=== PATIENT | female | born 2000 | race Caucasian/White ===

== ENCOUNTER 2019-09-18 17:01 | Emergency (ER) | payer OTHER ==
[~2019-09-18] VITALS: Ht 167.6 cm; Wt 83.9 kg
[2019-09-18 17:10] LABS: Calcium, Ionized (POC) 1.21 mmol/L (1.10-1.46); Chloride (POC) 104 mmol/L (98-108); Creatinine (POC) 0.8 mg/dL (0.6-1.0); Glucose (ISTAT POC) 121 mg/dL (70-99); Potassium (POC) 3.5 mmol/L (3.5-5.5); Sodium (POC) 138 mmol/L (135-148); Total CO2 (POC) 21 mmol/L (21-32)
[2019-09-18] MEDS ORDERED: CARB200ER PO (17:11)
[2019-09-18 18:29] LABS: Carbamazepine <0.5 ug/mL (4.0-12.0)
== END 2019-09-18 19:34 | disposition home or self-care (01) ==
LOC: ER 17:01
PROVIDERS: Emergency Medicine
DX: G40.909 Epilepsy, unspecified, not intractable, without status epilepticus (principal); F17.200 Nicotine dependence, unspecified, uncomplicated; Z79.899 Other long term (current) drug therapy; Z91.14 Patient's other noncompliance with medication regimen
CPT/HCPCS: 80047; 80156; 85014; 96374; 99284-25; J1885

== ENCOUNTER 2020-08-21 23:00 | Emergency (ER) | payer OTHER ==
[~2020-08-21] VITALS: Ht 167.6 cm; Wt 98.9 kg
[~2020-08-21 23:00] MED LIST: CARB200ER PO
[2020-08-21] MEDS ORDERED: LEVE500 PO (23:42)
== END 2020-08-22 00:23 | disposition home or self-care (01) ==
LOC: ER 23:00
DX: G40.909 Epilepsy, unspecified, not intractable, without status epilepticus (principal); R51 Headache; Z79.899 Other long term (current) drug therapy
CPT/HCPCS: 96374; 99283-25; J1885

== ENCOUNTER → 2021-08-18 | Outpatient (CLI) | payer OTHER ==
[~2021-08-18] MED LIST changes: +LEVE500 PO
[2021-08-20 11:10] LABS: CHLAMYDIA TRACHOMATIS, NAA Negative (Negative)
== END | disposition home or self-care (01) ==
LOC: LAB 12:06 → LAB SHORT 12:06
PROVIDERS: Family Medicine
DX: Z01.419 Encounter for gynecological examination (general) (routine) without abnormal findings (principal); Z11.3 Encounter for screening for infections with a predominantly sexual mode of transmission
CPT/HCPCS: 87491; 87591; G0123

== ENCOUNTER 2023-03-08 01:00 | Day surgery (SDC) | payer OTHER ==
[~2023-03-08 01:00] MED LIST changes: +Ativan1 MG PO
[2023-03-08] MEDS ORDERED: SPRINTEC PO (10:09)
[2023-03-08] MEDS ORDERED: SUMA25 PO (10:10)
[2023-03-08] MEDS ORDERED: MULTIPLE VITAM1 EACH PO (10:10)
--- NOTE | 2023-03-08 10:27 | NUR ---
LABS DRAWN FROM [facility] AT 0911, 0945 AND 1015.
== END 2023-03-08 10:17 | disposition home or self-care (01) ==
LOC: ATC 01:00
DX: E22.1 Hyperprolactinemia (principal); E28.2 Polycystic ovarian syndrome
CPT/HCPCS: 80400; 82533; J0834

== ENCOUNTER → 2024-01-11 | Outpatient (CLI) | payer OTHER ==
[~2024-01-11] MED LIST changes: +MULTIPLE VITAM1 EACH PO; +SPRINTEC PO; +SUMA25 PO
[2024-01-13 11:06] LABS: APTIMA MEDIA TYPE Unisex Swab; C. TRACHOMATIS BY TMA Negative (Negative); N. GONORRHOEAE BY TMA Negative (Negative); SPECIMEN SOURCE Cervical; T. VAGINALIS BY TMA Negative (Negative)
== END | disposition home or self-care (01) ==
LOC: LAB 11:18 → LAB SHORT 11:18
PROVIDERS: Obstetrics & Gynecology
DX: Z01.419 Encounter for gynecological examination (general) (routine) without abnormal findings (principal); Z11.3 Encounter for screening for infections with a predominantly sexual mode of transmission
CPT/HCPCS: 87491; 87591; 87661; G0123

== ENCOUNTER 2024-05-24 09:00 | Emergency (ER) | payer OTHER ==
[~2024-05-24] VITALS: Ht 167.6 cm; Wt 97.1 kg
[2024-05-24 09:07] VITALS: BP 139/85
[2024-05-24] MEDS ORDERED: Prochlorperazine Edisylate 10 mg Vial IV ONE (10:35)
[2024-05-24] MEDS ORDERED: Ketorolac Tromethamine 30mg Vial IV ONE (10:40)
[2024-05-24] MEDS ORDERED: DiphenhydrAMINE HCl 50 MG/ML 1ML Vial IV ONE (10:40)
== END 2024-05-24 11:31 | disposition home or self-care (01) ==
LOC: ER 09:00
DX: G43.909 Migraine, unspecified, not intractable, without status migrainosus (principal); Z79.899 Other long term (current) drug therapy
CPT/HCPCS: 96374; 96375; 99283-25; J0780; J1200; J1885

== ENCOUNTER 2025-03-19 10:56 | Emergency (ER) | payer OTHER ==
[~2025-03-19] VITALS: Ht 167.6 cm; Wt 111.1 kg
[2025-03-19 12:10] LABS: BASOPHILS ABSOLUTE AUTO 0.06 K/mm3 (0.00-0.23); BASOPHILS PERCENT AUTO 1 % (0-2); EOSINOPHILS ABSOLUTE AUTO 0.17 K/mm3 (0.00-0.68); EOSINOPHILS PERCENT AUTO 2 % (0-6); Hematocrit 40.5 % (33.0-51.0); Hemoglobin 13.4 g/dL (11.5-16.0); IMMATURE GRAN ABSOLUTE AUTO 0.03 K/mm3 (0.00-0.10); IMMATURE GRAN PERCENT AUTO 0 % (0-1); LYMPHOCYTES ABSOLUTE AUTO 2.46 K/mm3 (0.84-5.20); LYMPHOCYTES PERCENT AUTO 32 % (21-46); MONOCYTES ABSOLUTE AUTO 0.61 K/mm3 (0.16-1.47); MONOCYTES PERCENT AUTO 8 % (4-13); Mean Corpuscular HGB 28.8 pg (26.0-34.0); Mean Corpuscular HGB Conc 33.1 g/dL (31.5-36.5); Mean Corpuscular Volume 87 fL (80-100); NEUTROPHILS ABSOLUTE AUTO 4.48 K/mm3 (1.96-9.15); NEUTROPHILS PERCENT AUTO 57 % (41-73); Platelet Count 326 K/mm3 (150-400); RDW Coefficient Variation 12.8 % (11.7-14.2); RDW Standard Deviation 40.6 fL (35.1-46.3); Red Blood Cell Count 4.66 M/mm3 (3.80-5.20); White Blood Cell Count 7.81 K/mm3 (4.00-11.30)
[2025-03-19] MEDS ORDERED: Keppra750 MG PO (13:03)
[2025-03-19 14:08] LABS: Albumin, Blood 3.6 g/dL (3.4-5.0); Albumin/Globulin Ratio 0.9 (0.8-1.8); Bilirubin, Total 0.2 mg/dL (0.1-1.0); Bun/Creatinine Ratio 15.6 (12.0-20.0); Calcium, Blood 8.9 mg/dL (8.5-10.1); Creatinine, Blood 0.64 mg/dL (0.40-1.00); Globulin, Blood 4.1 g/dL (2.2-4.0); Potassium, Blood 3.8 mmol/L (3.5-5.5); Total Protein, Blood 7.7 g/dL (6.4-8.2)
[2025-03-19 14:25] VITALS: BP 116/74
== END 2025-03-19 14:24 | disposition home or self-care (01) ==
LOC: ER 10:56
PROVIDERS: Emergency Medicine
DX: R00.2 Palpitations (principal); G40.909 Epilepsy, unspecified, not intractable, without status epilepticus; Z79.899 Other long term (current) drug therapy
CPT/HCPCS: 80053; 84443; 84703; 85025; 93005; 93010; 93246; 99285-25